=== PATIENT | male | born 1950 | race Caucasian/White ===

== ENCOUNTER 2021-09-29 09:10 | Observation (INO) | payer BC, OTHER ==
--- OUTSIDE RECORDS SUMMARY | 2021-09-29 09:13 | XMS REPORT | Continuity of Care Document ---
:1950 Author Organization [facility] t Address [address] [place] [address] Care Team Providers Name Role Phone TRINITY MYERS Attending Clinician Unavailable Problems This patient has no known problems. Allergies, Adverse Reactions, Alerts This patient has no known allergies or adverse reactions. Medications Ordered Filled Start Stop Current Ordering Indication Dosage Frequency Signature Comments Components Source Medication Medication Date Date Medication? Clinician (SIG) Name Name Clopidogrel Clopidogrel Yes Graham not [facility] Bisulfate Bisulfate [facility] MetFORMIN MetFORMIN Yes Graham not [facility] HCl ER HCl ER [facility] Tamsulosin Tamsulosin Yes Graham not [facility] HCl HCl [facility] [place] Yes Graham not [facility] Thyroid Thyroid [facility] Testosteron Testosteron Yes Graham not [facility] Cypionate e Cypionate [facility] Thyroid Thyroid Yes Graham not [facility] defined [facility] Carvedilol Carvedilol Yes Graham not [facility] Atorvastati Atorvastati Yes Graham not [facility] n Calcium n Calcium [facility] Losartan Losartan Yes [facility] not [facility] Potassium Potassium [place] [facility] NURSES' REGISTRY DIRECTOR Thyroid NURSES' REGISTRY DIRECTOR Thyroid Yes Graham not [facility] Metoprolol Metoprolol Yes Graham not [facility] Tartrate Tartrate [facility] Amlodipine Amlodipine Yes Graham not [facility] Besylate Besylate [facility] Procedures This patient has no known procedures. Encounters Start End Encounter Admission Attending Care Care Encounter Source Date/Time Date/Time Type Type Clinicians Facility Department ID 2021-09-08 Outpatient IRVIN MYERS [facility] [id number] [facility] [address] 12:08:01 [id number] [facility] 2021-09-08 Outpatient IRVIN MYERS [facility] [id number] [facility] [address] 12[facility]00:15 [id number] [facility] 2021-09-08 Outpatient IRVIN MYERS [facility] [id number] [facility] [address] 11:59:34 [id number] [facility] 2021-09-08 Outpatient IRVIN MYERS [facility] [id number] [facility] [address] 11:54:44 [id number] [facility] 2020-07-13 2020-07-13 Outpatient [facility] [id number] 2020-07-06 2020-07-06 Out[facility] [id number] [facility] 2020-06-29 2020-06-29 Out[facility] [id number] [facility] 2020-06-25 2020-06-[address] [id number] 2020-06-11 2020-06-[address] [facility] [id number] [facility] 2019-05-15 2019-05-15 [facility] [id number] [facility] 08:30[facility]00 08:30[facility]00 [facility] Results This patient has no known results.
--- NOTE | 2021-09-29 09:29 | RAD REPORT ---
EXAM DESCRIPTION: CT - Ct Stroke Brain Wo Cont - 09/29/2021 9:22 am CLINICAL HISTORY: Right-sided weakness COMPARISON: none TECHNIQUE: Computed axial tomography of the head was obtained. All CT scans are performed using dose optimization technique as appropriate and may include automated exposure control or mA/KV adjustment according to patient size. FINDINGS: An intracranial bleed is not seen . The ventricles are normal in caliber. No extra-axial fluid collection is noted. Equivocal small low-density area within the left thalamus and left cerebellum. Small low-density area left frontal lobe probably chronic Fluid within the sinuses/ mastoids is not seen. IMPRESSION: Equivocal small low-density areas within the left thalamus and left cerebellum. 1 or bot h or equivocal for small acute infarct. MRI may be helpful. Iggy recio of the emergency room was notified at 9:24 a.m. September 29, 2021
[2021-09-29 09:33] LABS: Absolute Lymphocytes (CBC) 1.1 K/uL (0.7-4.9); Hematocrit 39.8 % (39.6-49.0); Lymphocytes % 19.1 % (15.3-44.8); MPV 7.9 fL (7.6-11.3); RBC Red Blood Cell Count 4.61 M/uL (4.33-5.43)
[2021-09-29 09:42] LABS: Potassium 4.4 mmol/L (3.5-5.1)
[2021-09-29 10:06] LABS: Protime INR 1.02
--- NOTE | 2021-09-29 10:19 | RAD REPORT ---
EXAM DESCRIPTION: Fabiana Single View2 10:00 am CLINICAL HISTORY: Chest pain COMPARISON: 2017 FINDINGS: The lungs appear clear of acute infiltrate. The heart is mildly enlarged. Postsurgical changes involve the chest. Aorta is tortuous/ectatic IMPRESSION: No acute abnormalities displayed
--- NOTE | 2021-09-29 10:55 | RAD REPORT ---
EXAM DESCRIPTION: Aayushck Angio09/29/2021 10:12 am CLINICAL HISTORY: cva COMPARISON: None TECHNIQUE: 50 cc Isovue 370 was administered intravenously. 3D MIP reconstruction performed All CT scans are performed using dose optimization technique as appropriate and may include automated exposure control or mA/KV adjustment according to patient size. FINDINGS: Mild plaque within the left common, left external and proximal and mid left internal carot id artery. Moderate calcified plaque distal left internal carotid artery. The distal left internal ca rotid artery very tortuous. Mild calcified plaque left vertebral artery. Suboptimal opacification right vertebral artery. Mild calcified plaque left common, left proximal and mid left internal carotid and left external moran tid arteries. Distal right internal carotid artery tortuous. Mild to moderate calcified plaque distal ly. IMPRESSION: Moderate calcified plaque distal left internal carotid artery Suboptimal opacification right vertebral artery. It is difficult to determine if there is significant pathology or this is secondary to technical factors. If clinically indicated a follow-up MRA neck co uld be obtained September 30, 2021 NASCET criteria used. Mild 0-49% stenosis Moderate 50-69% stenosis Severe 70-99% stenosis
--- NOTE | 2021-09-29 10:59 | RAD REPORT ---
EXAM DESCRIPTION: CTHead angio09/29/2021 10:12 am CLINICAL HISTORY: cva COMPARISON: None TECHNIQUE: CT angiogram of the head was obtained. 3D MIPS reconstruction performed. All CT scans are performed using dose optimization technique as appropriate and may include automated exposure control or mA/KV adjustment according to patient size. FINDINGS: The basilar, left anterior cerebral, middle cerebral and posterior cerebral arteries are n ormal caliber. Hypoplastic A1 segment right anterior cerebral artery. An aneurysm is not seen. A significant stenosis is not noted. IMPRESSION: No significant abnormality is displayed Refer to the CTA neck for distal internal carotid artery findings
--- NOTE | 2021-09-29 12:05 | EDPHYS ---
Physician Documentation [facility] Name: Jeremy Lopez Age: 71 yrs Sex: Male : 1950 Arrival Date: 09/29/2021 Time: 09:13 Bed 4 Private MD: ED Physician Robi Hu HPI: 09/29 09:16 This 71 yrs old Male presents to ER via EMS with complaints of Slurred speech, kdr disorientation and weakness. 09:16 The patient presents to the emergency department with weakness of the left upper kdr extremity, left lower extremity, entire body, generalized weakness, a speech or higher order brain function problem, aphasia, that is mild. Onset: The symptoms/episode began/occurred suddenly, at 08:30. Context: occurred at work, occurred while the patient was at rest. Associated signs and symptoms: Pertinent positives: altered mental status, weakness. Severity of symptoms: At their worst the symptoms were mild moderate just prior to arrival, in the emergency department the symptoms are unchanged. Patient's baseline: Neuro: alert and fully oriented, Motor: no deficits, Ambulation: walks without assistance, Speech: slow, slurred. Current symptoms: confusion. It is unknown whether or not the patient has had similar symptoms in the past. It is unknown whether or not the patient has recently seen a physician. Historical: - Allergies: 09:16 No Known Allergies; jd3 - Home Meds: 09:36 amlodipine oral [Active]; Plavix 75 mg Oral tab 1 tab once daily [Active]; atorvastatin jd3 oral [Active]; carvedilol 3.125 mg oral tab [Active]; doxazosin oral [Active]; losartan oral [Active]; Metformin Oral [Active]; tamsulosin oral [Active]; - PMHx: 09:16 Cerebrovascular accident; jd3 - PSHx: 09:18 heart surgery; jd3 - Immunization history:: Adult Immunizations up to date. - Social history:: Smoking status: unknown. ROS: 09:16 Constitutional: Negative for fever, chills, and weight loss, Eyes: Negative for injury, kdr pain, redness, and discharge, ENT: Negative for injury, pain, and discharge, Neck: Negative for injury, pain, and swelling, Cardiovascular: Negative for chest pain, palpitations, and edema, Respiratory: Negative for shortness of breath, cough, wheezing, and pleuritic chest pain, Abdomen/GI: Negative for abdominal pain, nausea, vomiting, diarrhea, and constipation, Back: Negative for injury and pain, : Negative for injury, bleeding, discharge, and swelling, MS/Extremity: Negative for injury and deformity, Skin: Negative for injury, rash, and discoloration, Psych: Negative for depression, anxiety, suicide ideation, homicidal ideation, and hallucinations, Allergy/Immunology: Negative for hives, rash, and allergies, Endocrine: Negative for neck swelling, polydipsia, polyuria, polyphagia, and marked weight changes, Hematologic/Lymphatic: Negative for swollen nodes, abnormal bleeding, and unusual bruising. 09:16 Neuro: Positive for altered mental status, speech changes, visual changes, weakness, Confusion, Negative for headache, loss of consciousness, seizure activity, syncope, near syncope, tremor. Exam: 09:47 Constitutional: This is a well developed, well nourished patient who is awake, alert, kdr and in no acute distress. Head/Face: Normocephalic, atraumatic. 10:22 ECG was reviewed by the Attending Physician. kdr Vital Signs: 09:15 BP 134 / 78; Pulse 67; Resp 19 S; Temp 97.2; Pulse Ox 97% on R/A; jd3 09:30 BP 129 / 78; Pulse 66; Resp 22; Pulse Ox 96% on R/A; ww 10:30 BP 121 / 71; Pulse 62; Resp 20; Pulse Ox 97% on R/A; ww 11:00 BP 108 / 69; Pulse 67; Resp 20; Pulse Ox 95% on R/A; ww 11:30 BP 128 / 66; Pulse 57; Resp 19; Pulse Ox 97% ; ww 13:16 BP 104 / 82; Pulse 67; Resp 21; Pulse Ox 97% on R/A; ww 14:45 BP 129 / 69; Pulse 71; Resp 20 S; Pulse Ox 95% on R/A; jd3 14:56 BP 129 / 69; Pulse 63; Resp 18; Temp 97.4; Pulse Ox 96% ; ke1 NIH Stroke Scale Scores: 09:05 NIHSS Score: 8 ke1 09:05 NIHSS Score: 8 ke1 09:16 NIHSS Score: 6 kdr 09:20 NIHSS Score: 7 ke1 Nicci Coma Score: 09:30 Eye Response: spontaneous(4). Verbal Response: oriented(5). Motor Response: obeys ww commands(6). Total: 15. MDM: 09:45 Data reviewed: vital signs, nurses notes, lab test result(s), radiologic studies. kdr Counseling: I had a detailed discussion with the patient and/or guardian regarding: the historical points, exam findings, and any diagnostic results supporting the discharge/admit diagnosis, lab results, radiology results. ED course: Dr. Stern. He indicated that since the stroke was evident on the initial CT, inferring that the stroke was probably in the neighborhood of 4-1/2 hours out at this point, and given his current use of Plavix, that the patient was at high risk for conversion to hemorrhagic stroke. Therefore the patient is not a candidate for TPA at this time. 12:04 [facility] medically screened. [facility] 09/29 09:15 Order name: Basic Metabolic Panel; Complete Time: 10:47 [facility] 09/29 09:15 Order name: CBC with Diff; Complete Time: 09:42 kdr 09/29 09:15 Order name: Protime (+inr); Complete Time: 10:47 [facility] 09/29 09:15 Order name: Ptt, Activated; Complete Time: 10:47 [facility] 09/29 09:15 Order name: CT Stroke Brain w/o Contrast; Complete Time: 09:42 [facility] 09/29 11:11 Order name: SARS-COV-2 RT PCR (Document "Date of Onset" if Symptomatic) 09/29 09:15 Order name: Stroke CXR 1 View; Complete Time: 10:47 [facility] 09/29 09:15 Order name: EKG; Complete Time: 09:16 kdr 09/29 09:32 Order name: Head Angio CT; Complete Time: 11:15 bd 09/29 10:06 Order name: Neck Angio; Complete Time: 10:58 [facility] 09/29 12:14 Order name: CONS Physician Consult [facility] 09/29 12:17 Order name: Echo with Doppler [facility] 09/29 12:17 Order name: Stroke Protocol [facility] 09/29 12:18 Order name: Chest Pa And Lat (2 Views) [facility] 09/29 09:15 Order name: Accucheck; Complete Time: 09:54 [facility] 09/29 09:15 Order name: Cardiac monitoring; Complete Time: 09:54 [facility] 09/29 09:15 Order name: EKG - Nurse/Tech; Complete Time: : kdr 09/29 09:15 Order name: IV Saline Lock; Complete Time: [facility] 09/29 09:15 Order name: Labs collected and sent; Complete Time: : kdr 09/29 09:15 Order name: NPO; Complete Time: : [facility] 09/29 09:15 Order name: O2 Per Protocol; Complete Time: : [facility] 09/29 09:15 Order name: O2 Sat Monitoring; Complete Time: : kdr 09/29 09:15 Order name: Stroke Swallow Screen; Complete Time: 10:00 [facility] 09/29 12:17 Order name: Physical Therapy Consult [facility] 09/29 12:17 Order name: NPO [facility] 09/29 12:17 Order name: EKG Electrocardiogram [facility] 09/29 12:18 Order name: Speech Therapy Consult [facility] EC:22 Rate is 64 beats/min. Rhythm is regular, Sinus Rhythm with No ectopy, Right bundle kdr branch block. QRS [place] is Normal. [place] interval is normal. QRS interval is normal. QT interval is normal. Clinical impression: NSR w/ Non-specific ST/T Changes. Administered Medications: No medications were administered Point of Care Testing: Blood Glucose: 09:10 Blood Glucose: 128 mg/dL; ke1 Ranges: Critical Glucose Levels:Adult <50 mg/dl or >400 mg/dl <40 mg/dl or >180 mg/dl Disposition Summary: 09/29/21 12:04 Hospitalization Ordered Hospitalization Status: Inpatient Admission kdr Provider: Demario Gonzalez Location: Telemetry/MedSurg (Inpatient) kdr Condition: Fair kdr Problem: new kdr Symptoms: have improved kdr Bed/Room Type: Standard kdr Room Assignment: 213(09/29/21 14:18) bd Diagnosis - Cerebrovascular accident kdr - Slurred speech kdr - Confusional arousals kdr Forms: - Medication Reconciliation Form kdr - SBAR form kdr NIH Stroke Scale - NIH Stroke Score Date: 09/29/2021 Time: 09:05 Total Score = 8 1a. Level of Consciousness (LOC) - 1(Not Alert) 1b. Level of Consciousness (LOC) (Month \\T\\ Age) - 0(Both) 1c. LOC Commands (Open \\T\\ Closes Eyes/[employer] Consultant) - 0(Both) 2. Best Gaze (Lateral Gaze Paresis) - 0(Normal) 3. Visual Field Loss - 1(Partial hemianopia) 4. Facial Palsy - 0(Normal) 5a. Left Arm: Motor (10-second hold) - 0(No drift) 5b. Right Arm: Motor (10-second hold) - 0(No drift) 6a. Left Leg: Motor (5-second hold - always test supine) - 2(Drift, some effort against gravity) 6b. Right Leg: Motor (5-second hold - always test supine) - 0(No drift) 7. Limb Ataxia (finger/nose \\T\\ heel/patel - test with eyes open) - 2(Present in two limbs) 8. Sensory Loss (pinprick arms/legs/face) - 0(Normal) 9. Best Language: Aphasia (description/naming/reading) - 1(Mild to moderate aphasia) 10. Dysarthria (speech clarity - read or repeat words) - 1(Mild to Moderate) 11. Extinction and Inattention (visual/tactile/auditory/spatial/personal) - 0(No abnormality) Initials: ke1 NIH Stroke Scale - NIH Stroke Score Date: 09/29/2021 Time: 09:05 Total Score = 8 1a. Level of Consciousness (LOC) - 0(Alert) 1b. Level of Consciousness (LOC) (Month \\T\\ Age) - 1(One) 1c. LOC Commands (Open \\T\\ Closes Eyes/[employer] Consultant) - 0(Both) 2. Best Gaze (Lateral Gaze Paresis) - 0(Normal) 3. Visual Field Loss - 1(Partial hemianopia) 4. Facial Palsy - 0(Normal) 5a. Left Arm: Motor (10-second hold) - 0(No drift) 5b. Right Arm: Motor (10-second hold) - 0(No drift) 6a. Left Leg: Motor (5-second hold - always test supine) - 2(Drift, some effort against gravity) 6b. Right Leg: Motor (5-second hold - always test supine) - 0(No drift) 7. Limb Ataxia (finger/nose \\T\\ heel/patel - test with eyes open) - 2(Present in two limbs) 8. Sensory Loss (pinprick arms/legs/face) - 0(Normal) 9. Best Language: Aphasia (description/naming/reading) - 1(Mild to moderate aphasia) 10. Dysarthria (speech clarity - read or repeat words) - 1(Mild to Moderate) 11. Extinction and Inattention (visual/tactile/auditory/spatial/personal) - 0(No abnormality) Initials: ke1 NIH Stroke Scale - NIH Stroke Score Date: 09/29/2021 Time: 09:16 Total Score = 6 1a. Level of Consciousness (LOC) - 0(Alert) 1b. Level of Consciousness (LOC) (Month \\T\\ Age) - 0(Both) 1c. LOC Commands (Open \\T\\ Closes Eyes/[employer] Consultant) - 0(Both) 2. Best Gaze (Lateral Gaze Paresis) - 0(Normal) 3. Visual Field Loss - 1(Partial hemianopia) 4. Facial Palsy - 0(Normal) 5a. Left Arm: Motor (10-second hold) - 0(No drift) 5b. Right Arm: Motor (10-second hold) - 0(No drift) 6a. Left Leg: Motor (5-second hold - always test supine) - 0(No drift) 6b. Right Leg: Motor (5-second hold - always test supine) - 0(No drift) 7. Limb Ataxia (finger/nose \\T\\ heel/patel - test with eyes open) - 2(Present in two limbs) 8. Sensory Loss (pinprick arms/legs/face) - 0(Normal) 9. Best Language: Aphasia (description/naming/reading) - 1(Mild to moderate aphasia) 10. Dysarthria (speech clarity - read or repeat words) - 2(Severe) 11. Extinction and Inattention (visual/tactile/auditory/spatial/personal) - 0(No abnormality) Initials: [facility] NIH Stroke Scale - NIH Stroke Score Date: 09/29/2021 Time: 09:20 Total Score = 7 1a. Level of Consciousness (LOC) - 1(Not Alert) 1b. Level of Consciousness (LOC) (Month \\T\\ Age) - 0(Both) 1c. LOC Commands (Open \\T\\ Closes Eyes/[employer] Consultant) - 0(Both) 2. Best Gaze (Lateral Gaze Paresis) - 0(Normal) 3. Visual Field Loss - 1(Partial hemianopia) 4. Facial Palsy - 0(Normal) 5a. Left Arm: Motor (10-second hold) - 0(No drift) 5b. Right Arm: Motor (10-second hold) - 0(No drift) 6a. Left Leg: Motor (5-second hold - always test supine) - 1(Drift) 6b. Right Leg: Motor (5-second hold - always test supine) - 0(No drift) 7. Limb Ataxia (finger/nose \\T\\ heel/patel - test with eyes open) - 2(Present in two limbs) 8. Sensory Loss (pinprick arms/legs/face) - 0(Normal) 9. Best Language: Aphasia (description/naming/reading) - 1(Mild to moderate aphasia) 10. Dysarthria (speech clarity - read or repeat words) - 1(Mild to Moderate) 11. Extinction and Inattention (visual/tactile/auditory/spatial/personal) - 0(No abnormality) Initials: ke1 Signatures: Dispatcher [employer] EDMS Dona Quezada Kevin, MD MD kdr Davies, Jonathon, RN RN jd3 Corrections: (The following items were deleted from the chart) 09:39 09:36 Home Meds: atorvastatin oral; jd3 jd3 14:18 12:04 [facility] bd
--- NOTE | 2021-09-29 12:05 | ER ---
Nurse's Notes [facility] Name: Jeremy Lopez Age: 71 yrs Sex: Male : 1950 Arrival Date: 09/29/2021 Time: 09:13 Bed 4 Private MD: Diagnosis: Cerebrovascular accident;Slurred speech;Confusional arousals Presentation: 09/29 09:13 Chief complaint: EMS states: "at 0830 the pt's boss noticed he was not acting normal jd3 and was having some slurred speech and drowsiness. the pt's family reported that he has had a stroke in the past. 20 G IV started to left AC. BGL of 128. has normal strengths, but reports weakness to left leg.". Coronavirus screen: At this time, the client does not indicate any symptoms associated with coronavirus-19. Ebola Screen: No symptoms or risks identified at this time. Initial Sepsis Screen: Does the patient meet any 2 criteria? No. Patient's initial sepsis screen is negative. Does the patient have a suspected source of infection? No. Patient's initial sepsis screen is negative. Risk Assessment: Do you want to hurt yourself or someone else? Patient reports no desire to harm self or others. Onset of symptoms was September 29, 2021. 09:13 Method Of Arrival: EMS: [facility] jd3 09:13 Acuity: NITIN 2 jd3 09:15 An acute neurological deficit is present. The charge nurse has been notified. The jd3 patient has been moved to a treatment area. The patients blood glucose was checked before arriving to the hospital and was found to be normal. Triage Assessment: 14:57 General: Appears in no apparent distress. Behavior is calm, cooperative. ke1 15:01 The onset of the patients symptoms was September 29, 2021 at 08:30. ke1 15:01 Neuro: Reports slurred speech. ke1 Stroke Activation: Symptom onset < 3 hours Physician: Stroke Attending; Name: ; Notified At: ; Arrived At: Physician: Chief Stroke Resident; Name: ; Notified At: ; Arrived At: Physician: Stroke Resident; Name: ; Notified At: ; Arrived At: Physician: ED Attending; Name: Mayte MAHMOOD; Notified At: 09:13; Arrived At: 09:13 Physician: ED Resident; Name: ; Notified At: ; Arrived At: Historical: - Allergies: 09:16 No Known Allergies; jd3 - Home Meds: 09:36 amlodipine oral [Active]; Plavix 75 mg Oral tab 1 tab once daily [Active]; atorvastatin jd3 oral [Active]; carvedilol 3.125 mg oral tab [Active]; doxazosin oral [Active]; losartan oral [Active]; Metformin Oral [Active]; tamsulosin oral [Active]; - PMHx: 09:16 Cerebrovascular accident; jd3 - PSHx: 09:18 heart surgery; jd3 - Immunization history:: Adult Immunizations up to date. - Social history:: Smoking status: unknown. Screenin:45 Abuse screen: Denies threats or abuse. Nutritional screening: No deficits noted. ke1 Tuberculosis screening: No symptoms or risk factors identified. Fall Risk No fall in past 12 months (0 pts). IV access (20 points). Ambulatory Aid- None/Bed Rest/Nurse Assist (0 pts). Gait- Weak (10 pts.). Mental Status- Oriented to own ability (0 pts). Total Dhillon Fall Scale indicates Low Risk Score (25-44 pts). Fall prevention measures have been instituted. Side Rails Up X 2 Frequent Obs/Assesments occuring As available Patient and Family Educated on Fall Prevention Program and strategies. Assessment: 09:05 VAN Scoring:. Pain: Denies pain. ke1 09:15 T-PA (Activase) Screening: Contraindications: Other: not needed per Provider. ke1 09:24 Reassessment: results given to Iggy Page by Dr. Reynolds. iw 09:44 Patient has been NPO before screening. The patient is alert, and able to follow ke1 commands. The patient exhibits slurred or garbled speech. Provider notified of the indication for Speech Therapy consult. The patient is exhibiting difficulty speaking. The patient does not exhibit difficulty understanding words. The patient is able to swallow own secretions with no drooling or need for suction. Patient tolerated one teaspoon of water. No drooling, immediate coughing, gurgling, or clearing of the throat was noted. The patient tolerated 90mL of water. No drooling, immediate coughing, gurgling, or clearing of the throat was noted. The patient passed the bedside swallow screening. Oral medications may be given as ordered. Contact Physician for further diet orders. Provider notified of bedside swallow screening results: Robi Hu MD. 10:36 Neuro: Level of Consciousness is alert, obeys commands, Oriented to person, place, ww time, situation, Ticket Dispenser Changer are equal bilaterally Moves all extremities. Speech is slurred, Facial symmetry appears normal, Intact. 12:30 Reassessment: Patient appears in no apparent distress at this time. No changes from ww previously documented assessment. Patient and/or family updated on plan of care and expected duration. Pain level reassessed. family at bedside. 13:16 Reassessment: Patient appears in no apparent distress at this time. No changes from ww previously documented assessment. Patient and/or family updated on plan of care and expected duration. Pain level reassessed. 14:44 Reassessment: No changes from previously documented assessment. Patient and/or family jd3 updated on plan of care and expected duration. Pain level reassessed. Patient is alert, oriented x 3, equal unlabored respirations, skin warm/dry/pink. Vital Signs: 09:15 BP 134 / 78; Pulse 67; Resp 19 S; Temp 97.2; Pulse Ox 97% on R/A; jd3 09:30 BP 129 / 78; Pulse 66; Resp 22; Pulse Ox 96% on R/A; ww 10:30 BP 121 / 71; Pulse 62; Resp 20; Pulse Ox 97% on R/A; ww 11:00 BP 108 / 69; Pulse 67; Resp 20; Pulse Ox 95% on R/A; ww 11:30 BP 128 / 66; Pulse 57; Resp 19; Pulse Ox 97% ; ww 13:16 BP 104 / 82; Pulse 67; Resp 21; Pulse Ox 97% on R/A; ww 14:45 BP 129 / 69; Pulse 71; Resp 20 S; Pulse Ox 95% on R/A; jd3 14:56 BP 129 / 69; Pulse 63; Resp 18; Temp 97.4; Pulse Ox 96% ; ke1 Alton Coma Score: 09:30 Eye Response: spontaneous(4). Verbal Response: oriented(5). Motor Response: obeys ww commands(6). Total: 15. NIH Stroke Scale Scores: 09:05 NIHSS Score: 8 ke1 09:05 NIHSS Score: 8 ke1 09:16 NIHSS Score: 6 kdr 09:20 NIHSS Score: 7 ke1 ED Course: 09:13 Patient arrived in ED. jd3 09:14 Robi Hu MD is Attending Physician. kdr 09:15 Triage completed. jd3 09:18 Arm band placed on. jd3 09:20 Patient has correct armband on for positive identification. Bed in low position. Call ww light in reach. Side rails up X2. helper marble finisher on. Pulse ox on. NIBP on. 09:20 EKG done. Inserted saline lock: 20 gauge in right forearm, using aseptic technique. ww Blood collected. 09:22 CT Stroke Brain w/o Contrast In Process Unspecified. EDMS 09:54 Myrtle Fontanez, RN is Primary Nurse. ww 10:00 Stroke CXR 1 View In Process Unspecified. EDMS 10:[address] In Process Unspecified. EDMS 10:12 Neck Angio In Process Unspecified. EDMS 12:03 Demario Gonzalez MD is Hospitalizing Provider. kdr 14:57 No provider procedures requiring assistance completed. ke1 15:01 Patient admitted, IV remains in place. ke1 Administered Medications: No medications were administered Point of Care Testing: Blood Glucose: 09:10 Blood Glucose: 128 mg/dL; ke1 Ranges: Output: 12:00 Urine: 575ml (Voided); Total: 575ml. Outcome: 12:04 Decision to Hospitalize by Provider. kdr 15:00 Admitted to Med/surg accompanied by nurse, via wheelchair, room 213. ke1 15:00 Condition: improved 15:00 Instructed on the need for admit. 15:16 Patient left the ED. jd3 NIH Stroke Scale - NIH Stroke Score Date: 09/29/2021 Time: 09:05 Total Score = 8 1a. Level of Consciousness (LOC) - 1(Not Alert) 1b. Level of Consciousness (LOC) (Month \\T\\ Age) - 0(Both) 1c. LOC Commands (Open \\T\\ Closes Eyes/Turpentine Distiller) - 0(Both) 2. Best Gaze (Lateral Gaze Paresis) - 0(Normal) 3. Visual Field Loss - 1(Partial hemianopia) 4. Facial Palsy - 0(Normal) 5a. Left Arm: Motor (10-second hold) - 0(No drift) 5b. Right Arm: Motor (10-second hold) - 0(No drift) 6a. Left Leg: Motor (5-second hold - always test supine) - 2(Drift, some effort against gravity) 6b. Right Leg: Motor (5-second hold - always test supine) - 0(No drift) 7. Limb Ataxia (finger/nose \\T\\ heel/patel - test with eyes open) - 2(Present in two limbs) 8. Sensory Loss (pinprick arms/legs/face) - 0(Normal) 9. Best Language: Aphasia (description/naming/reading) - 1(Mild to moderate aphasia) 10. Dysarthria (speech clarity - read or repeat words) - 1(Mild to Moderate) 11. Extinction and Inattention (visual/tactile/auditory/spatial/personal) - 0(No abnormality) Initials: ke1 NIH Stroke Scale - NIH Stroke Score Date: 09/29/2021 Time: 09:05 Total Score = 8 1a. Level of Consciousness (LOC) - 0(Alert) 1b. Level of Consciousness (LOC) (Month \\T\\ Age) - 1(One) 1c. LOC Commands (Open \\T\\ Closes Eyes/Turpentine Distiller) - 0(Both) 2. Best Gaze (Lateral Gaze Paresis) - 0(Normal) 3. Visual Field Loss - 1(Partial hemianopia) 4. Facial Palsy - 0(Normal) 5a. Left Arm: Motor (10-second hold) - 0(No drift) 5b. Right Arm: Motor (10-second hold) - 0(No drift) 6a. Left Leg: Motor (5-second hold - always test supine) - 2(Drift, some effort against gravity) 6b. Right Leg: Motor (5-second hold - always test supine) - 0(No drift) 7. Limb Ataxia (finger/nose \\T\\ heel/patel - test with eyes open) - 2(Present in two limbs) 8. Sensory Loss (pinprick arms/legs/face) - 0(Normal) 9. Best Language: Aphasia (description/naming/reading) - 1(Mild to moderate aphasia) 10. Dysarthria (speech clarity - read or repeat words) - 1(Mild to Moderate) 11. Extinction and Inattention (visual/tactile/auditory/spatial/personal) - 0(No abnormality) Initials: ke1 NIH Stroke Scale - NIH Stroke Score Date: 09/29/2021 Time: 09:16 Total Score = 6 1a. Level of Consciousness (LOC) - 0(Alert) 1b. Level of Consciousness (LOC) (Month \\T\\ Age) - 0(Both) 1c. LOC Commands (Open \\T\\ Closes Eyes/Turpentine Distiller) - 0(Both) 2. Best Gaze (Lateral Gaze Paresis) - 0(Normal) 3. Visual Field Loss - 1(Partial hemianopia) 4. Facial Palsy - 0(Normal) 5a. Left Arm: Motor (10-second hold) - 0(No drift) 5b. Right Arm: Motor (10-second hold) - 0(No drift) 6a. Left Leg: Motor (5-second hold - always test supine) - 0(No drift) 6b. Right Leg: Motor (5-second hold - always test supine) - 0(No drift) 7. Limb Ataxia (finger/nose \\T\\ heel/patel - test with eyes open) - 2(Present in two limbs) 8. Sensory Loss (pinprick arms/legs/face) - 0(Normal) 9. Best Language: Aphasia (description/naming/reading) - 1(Mild to moderate aphasia) 10. Dysarthria (speech clarity - read or repeat words) - 2(Severe) 11. Extinction and Inattention (visual/tactile/auditory/spatial/personal) - 0(No abnormality) Initials: [facility] NIH Stroke Scale - NIH Stroke Score Date: 09/29/2021 Time: 09:20 Total Score = 7 1a. Level of Consciousness (LOC) - 1(Not Alert) 1b. Level of Consciousness (LOC) (Month \\T\\ Age) - 0(Both) 1c. LOC Commands (Open \\T\\ Closes Eyes/Turpentine Distiller) - 0(Both) 2. Best Gaze (Lateral Gaze Paresis) - 0(Normal) 3. Visual Field Loss - 1(Partial hemianopia) 4. Facial Palsy - 0(Normal) 5a. Left Arm: Motor (10-second hold) - 0(No drift) 5b. Right Arm: Motor (10-second hold) - 0(No drift) 6a. Left Leg: Motor (5-second hold - always test supine) - 1(Drift) 6b. Right Leg: Motor (5-second hold - always test supine) - 0(No drift) 7. Limb Ataxia (finger/nose \\T\\ heel/patel - test with eyes open) - 2(Present in two limbs) 8. Sensory Loss (pinprick arms/legs/face) - 0(Normal) 9. Best Language: Aphasia (description/naming/reading) - 1(Mild to moderate aphasia) 10. Dysarthria (speech clarity - read or repeat words) - 1(Mild to Moderate) 11. Extinction and Inattention (visual/tactile/auditory/spatial/personal) - 0(No abnormality) Initials: ke1 Signatures: Dispatcher [employer] EDMS Robi Hu MD MD kdr Apple Dooley RN RN iw Davies, Jonathon, RN RN jd3 Wood, Whitney, RN RN ww Ebrottie, Kouassi, RN RN ke1 Corrections: (The following items were deleted from the chart) 09:28 09:13 Chief complaint: EMS states: "at 0830 the pt's boss noticed he was not jd3 acting normal and was having some slurred speech and drowsiness. the pt's family reported that he has had a stroke in the past." jd3 09:30 09:15 BP 134 / 78; Pulse 67bpm; Resp 19bpm; Spontaneous; Pulse Ox 97% RA; jd3 jd3 09:39 09:36 Home Meds: atorvastatin oral; j jd3 11:18 09:21 NIHSS Score: 6 ke1 ke1 14:59 14:57 General: Appears ke1 ke1 15:00 14:58 General: Behavior is ke1 ke1 15:04 15:02 T-PA (Activase) Screening: Contraindications: Other: not needed per ke1 Provider ke1
[2021-09-29] MEDS ORDERED: ONDANSETRON 4 MG/2 ML VIAL IV PRN (12:14)
--- NOTE | 2021-09-29 12:18 | P.HP ---
Certification for Inpatient Patient admitted to: Observation With expected LOS: <2 Midnights Practitioner: I am a practitioner with admitting privileges, knowledge of patient current condition, hospital course, and medical plan of care. Services: Services provided to patient in accordance with Admission requirements found in Title 42 Section 412.3 of the Code of Federal Regulations Patient History Date of Service: 09/29/21 Reason for admission: Slurred speech, stroke History of Present Illness: 71yo M , PMH: CAD s/p CABG, prior CVA, HTN Presents to the ED due to weakness and slurred speech. Unable to get accurate history from patient at this time. Family only able to provide partial history. They state patient arrived to work when he felt weak and slurred speech this morning. Denies any recent change in medications, no recent illness, no nausea/vomiting, no focal weakness in any extremities, denies difficulty swallowing. Family also reports he seems to intermittently have some slurred speech at times. In the ED, blood work rather unremarkable, CT head noted equivocal findings for possible acute stroke. Neurology was consulted in the ED, recommended the patient come to the hospital, obtain MRI/MRA for further evaluation. With findings on CT, felt to be out of the window for TPA. Allergies No Known Allergies Allergy (Verified 03/21/17 07:15) Home Medications: Atorvastatin Calcium [Lipitor*] 10 mg PO BEDTIME 03/17/17 Losartan Potassium [Cozaar*] 100 mg PO [id number] 03/17/17 Metformin HCl [Metformin ER Osmotic] 2,000 mg PO DAILY 03/17/17 Tamsulosin [Flomax*] 0.8 mg PO BEDTIME 03/17/17 Thyroid,Pork [Precision Farming Specialist Thyroid] 180 mg PO DAILY 03/17/17 Amlodipine Besylate 5 mg PO DAILY 09/29/21 Aspirin [Aspirin EC 81 MG] 81 mg PO DAILY 09/29/21 Carvedilol [Coreg] 75 mg PO DAILY 09/29/21 Doxazosin [Cardura*] 1 mg PO BEDTIME 09/29/21 - Past Medical/Surgical History Diabetic: Yes -: HTN -: DM -: ID -: CVA -: ETOH Abuse -: Coronary artery bypass grafting x4 -: steel plate right leg 1974 -: appendectomy 1973 - Family History Mother -: Hypertension, Diabetes, Cancer - Social History Smoking Status: Current every day smoker Alcohol use: Yes CD- Drugs: No Caffeine use: Yes Place of Residence: Home Review of Systems 10-point ROS is otherwise unremarkable Physical Examination - Physical Exam General: Alert, In no apparent distress, Oriented x3 HEENT: Sclerae nonicteric Respiratory: Clear to auscultation bilaterally, Normal air movement Cardiovascular: No edema, Regular rate/rhythm Gastrointestinal: Soft and benign, Non-distended, No tenderness Musculoskeletal: No tenderness Integumentary: No significant lesion Neurological: Normal strength at 5/5 x4 extr, Other (Slurred speech; CN II-XII otherwise grossly intact) - Studies Laboratory Data (last 24 hrs) 09/29/21 09:10: PT 11.7, INR 1.02, APTT 28.2 09/29/21 09:10: WBC 5.70, Hgb 13.1 L, Hct 39.8, Plt Count 159 09/29/21 09:10: Sodium 137, Potassium 4.4, BUN 19 H, Creatinine 0.85, Glucose 116 H Assessment and Plan - Advance Directives Does patient have a Living Will: No Does patient have a Durable POA for Healthcare: Yes Physician Review Additional Text: Problem list Slurred speech, possible acute CVA Prior CVA ~30+ yrs ago Hypertension CAD, CABG Nicotine dependence Patient was slurred speech since this morning, last unknown unclear CT with equivocal findings for possible acute stroke ED physician spoke with neurology, no TPA at this time, out of the window Obtain MRI and MRA head/neck for further evaluation Speech therapy consult, n.p.o. for now Bedside swallow eval Physical therapy Aspirin, statin, Plavix, folic acid Moderate calcified plaque distal left internal carotid artery, MRA for further evaluation Neurology consulted Code: Full Dispo: Anticipate DC home tomorrow Time Spent Managing Pts Care (In Minutes): 60
[2021-09-29] MEDS ORDERED: NA CHLORIDE 0.9% 1,000 ML IV SCH (13:00)
[2021-09-29] MEDS ORDERED: NA CHLORIDE 0.9% 1,000 ML ONE (13:14)
[2021-09-29 16:12] VITALS: BMI 25.7
[2021-09-29 19:47] VITALS: O2SAT 95
[2021-09-29] MEDS ORDERED: ATORVASTATIN 40 MG TAB PO SCH (21:00)
[2021-09-30 06:15] LABS: Absolute Lymphocytes (CBC) 1.4 K/uL (0.7-4.9); Hematocrit 37.9 % (39.6-49.0); Lymphocytes % 22.4 % (15.3-44.8); MPV 8.3 fL (7.6-11.3); RBC Red Blood Cell Count 4.43 M/uL (4.33-5.43)
--- NOTE | 2021-09-30 06:19 | P.PN ---
Date of Service: 09/30/21
[2021-09-30 06:34] LABS: ALT/SGPT 36 U/L (12-78); AST/SGOT 14 U/L (15-37); Albumin 2.9 g/dL (3.4-5.0); Alkaline Phosphatase 110 U/L (45-117); BUN Blood Urea Nitrogen 12 mg/dL (7-18); Bicarbonate 26 mmol/L (21-32); Bilirubin Total 0.4 mg/dL (0.2-1.0); Glucose Level 100 mg/dL (74-106); HDL Cholesterol 32 mg/dL (40-60); LDL Cholesterol, Calculated 31 (<130); Magnesium 1.8 mg/dL (1.8-2.4); Potassium 4.3 mmol/L (3.5-5.1); Protein, Total 6.3 g/dL (6.4-8.2); Sodium Level 138 mmol/L (136-145)
--- NOTE | 2021-09-30 07:39 | RAD REPORT ---
EXAM DESCRIPTION: MRI - Brain W/Wo Cont - 09/29/2021 10:31 pm CLINICAL HISTORY: acute CVA COMPARISON: MRA Head Wo Cont dated 09/29/2021; Head angio dated 09/29/2021; Neck Angio dated 09/29/2021 TECHNIQUE: Sagittal T1-weighted images were obtained along with PD/heavily T2-weighted and T2-FLAIR images. Axial DWI and ADC mapping sequences were also obtained along with coronal heavily T2-weighted images were obtained. Contrast was administered. FINDINGS: No intracranial hemorrhage, mass or acute infarction. There is no edema or shift of midlin e structures. No extra-axial fluid collections. Signal voids are seen as a normal finding in the cristina r intracranial vessels. Mild to moderate chronic small vessel ischemic changes. Mastoid air cells and paranasal sinuses are clear. IMPRESSION: No acute intracranial abnormality. Specifically, no evidence of acute infarct or abnorma l enhancement. Mild to moderate chronic small vessel ischemic changes.
--- NOTE | 2021-09-30 08:19 | RAD REPORT ---
EXAM DESCRIPTION: MRI - MRA Head Wo Cont - 09/29/2021 10:28 pm CLINICAL HISTORY: acute CVA CVA COMPARISON: Head angio dated 09/29/2021 FINDINGS: 3D noncontrast [id number] MR angiography of the [place] was performed. No aneurysm, flow-limiting stenosis or vascular malformation is seen. Forward flow seen in codominant vertebral arteries. The visualized dural venous sinuses appear patent. Mucous retention cyst in the right sphenoid sinus IMPRESSION: No significant flow abnormality of the [place] is identified.
--- NOTE | 2021-09-30 08:30 | RAD REPORT ---
EXAM DESCRIPTION: MRI - MRA Neck W/Wo Cont - 09/29/2021 10:31 pm CLINICAL HISTORY: acute CVA COMPARISON: Neck Angio dated 09/29/2021 FINDINGS: Contrast enhance 2D [id number] MR angiography of the neck vessels was performed. Both carotid systems are widely patent. The vertebral arteries are widely patent. The vessels are ronnie ewhat tortuous bilaterally. IMPRESSION: No flow limiting stenosis is present within the neck.
[2021-09-30 08:45] VITALS: BP 134/71; TEMP 97.6
[2021-09-30] MEDS ORDERED: CLOPIDOGREL 75 MG TABLET PO SCH (09:00)
[2021-09-30] MEDS ORDERED: FOLIC ACID 1 MG TABLET PO SCH (09:00)
--- NOTE | 2021-09-30 20:48 | P.DS ---
Admission Date: 09/29/21 Discharge Date: 09/30/21 Disposition: ROUTINE DISCHARGE Discharge Condition: GOOD Reason for Admission: Slurred speech, TIA Consultations: Neurology - Dr. Stern Procedures: Problem list TIA Prior CVA ~30+ yrs ago Hypertension CAD, CABG Nicotine dependence Brief History of Present Illness: 71yo M , PMH: CAD s/p CABG, prior CVA, HTN Presents to the ED due to weakness and slurred speech. Unable to get accurate history from patient at this time. Family only able to provide partial history. They state patient arrived to work when he felt weak and slurred speech this morning. Denies any recent change in medications, no recent illness, no nausea/vomiting, no focal weakness in any extremities, denies difficulty swallowing. Family also reports he seems to intermittently have some slurred speech at times. In the ED, blood work rather unremarkable, CT head noted equivocal findings for possible acute stroke. Neurology was consulted in the ED, recommended the patient come to the hospital, obtain MRI/MRA for further evaluation. With findings on CT, felt to be out of the window for TPA. Hospital Course: Patient presented with slurred speech. Initial imaging by CT was concerning for possible stroke vs imaging artifact. MRI and MRA was obtained of head and neck and did not reveal any abnormalities. Patient's symptoms resolved and he was back to his baseline. Labs were unremarkable and vitals stable / WNL. Neurology (Dr. Stern) was consulted, recommended medical management for likely TIA. Aspirin, plavix, statin dose increased, and folic acid Follow up with Neurology in a few weeks. To consider further evaluation for seizure as outpatient. Follow up with PCP within 1 week. Vital Signs/Physical Exam: Temp Pulse Resp BP Pulse Ox 97.6 F 75 20 134/71 96 09/30/21 08:00 09/30/21 08:00 09/30/21 08:00 09/30/21 08:00 09/30/21 08:00 Physical Exam General: Alert, In no apparent distress, Oriented x3 Respiratory: Clear to auscultation bilaterally, Normal air movement Cardiovascular: No edema, Regular rate/rhythm Gastrointestinal: Soft and benign, Non-distended, No tenderness Musculoskeletal: No tenderness Integumentary: No significant lesion Neurological: Normal strength at 5/5 x4 extr, CN II-XII grossly intact) Laboratory Data at Discharge: WBC 6.10 K/uL (4.3-10.9) 09/30/21 05:48 Hgb 12.7 g/dL (13.6-17.9) L 09/30/21 05:48 Hct 37.9 % (39.6-49.0) L 09/30/21 05:48 Plt Count 159 K/uL (152-406) 09/30/21 05:48 PT 11.7 SECONDS (9.5-12.5) 09/29/21 09:10 INR 1.02 09/29/21 09:10 APTT 28.2 SECONDS (24.3-36.9) 09/29/21 09:10 Sodium 138 mmol/L (136-145) 09/30/21 05:48 Potassium 4.3 mmol/L (3.5-5.1) 09/30/21 05:48 BUN 12 mg/dL (7-18) 09/30/21 05:48 Creatinine 0.76 mg/dL (0.55-1.3) 09/30/21 05:48 Glucose 100 mg/dL (74-106) 09/30/21 05:48 Magnesium 1.8 mg/dL (1.8-2.4) 09/30/21 05:48 Total Bilirubin 0.4 mg/dL (0.2-1.0) 09/30/21 05:48 AST 14 U/L (15-37) L 09/30/21 05:48 ALT 36 U/L (12-78) 09/30/21 05:48 Alkaline Phosphatase 110 U/L (45-117) 09/30/21 05:48 Triglycerides 179 mg/dL (<150) H 09/30/21 05:48 Cholesterol 99 mg/dL (<200) 09/30/21 05:48 HDL Cholesterol 32 mg/dL (40-60) L 09/30/21 05:48 Cholesterol/HDL Ratio 3.09 09/30/21 05:48 Home Medications: Losartan Potassium [Cozaar*] 100 mg PO [id number] 03/17/17 Metformin HCl [Metformin ER Osmotic] 2,000 mg PO DAILY 03/17/17 Tamsulosin [Flomax*] 0.8 mg PO BEDTIME 03/17/17 Thyroid,Pork [Academic Department Chair Thyroid] 180 mg PO DAILY 03/17/17 Amlodipine Besylate 5 mg PO DAILY 09/29/21 Aspirin [Aspirin EC 81 MG] 81 mg PO DAILY 09/29/21 Carvedilol [Coreg] 75 mg PO DAILY 09/29/21 Doxazosin [Cardura*] 1 mg PO BEDTIME 09/29/21 Atorvastatin Calcium [Lipitor] 40 mg PO BEDTIME 30 Days #30 tab 09/30/21 Clopidogrel Bisulfate [Plavix*] 75 mg PO DAILY 30 Days #30 tablet 09/30/21 Folic Acid 1 mg PO DAILY 30 Days #30 tablet 09/30/21 New Medications: Folic Acid 1 mg PO DAILY 30 Days #30 tablet Atorvastatin Calcium [Lipitor] 40 mg PO BEDTIME 30 Days #30 tab Clopidogrel Bisulfate [Plavix*] 75 mg PO DAILY 30 Days #30 tablet Physician Discharge Instructions: Patient presented with slurred speech. Initial imaging by CT was concerning for possible stroke vs imaging artifact. MRI and MRA was obtained of head and neck and did not reveal any abnormalities. Patient's symptoms resolved and he was back to his baseline. Labs were unremarkable and vitals stable / WNL. Neurology (Dr. Stern) was consulted, recommended medical management for likely TIA. Aspirin, plavix, statin dose increased, and folic acid Follow up with Neurology in a few weeks. To consider further evaluation for seizure as outpatient. Follow up with PCP within 1 week. Diet: Regular Activity: Ad abad Followup: Daniel Palumbo MD [Primary Care Provider] - (Call to schedule appointment) Time spent managing pt's care (in minutes): 45
--- NOTE | 2021-10-01 07:53 | ECHO ---
HEIGHT: 5 ft 11 in WEIGHT: 185 lb 0 oz DATE OF STUDY: 09/29/[address]: Demario Gonzalez MD 2-DIMENSIONAL: YES M.MODE: YES DOPPLER: YES COLOR FLOW: YES TDS: NO PORTABLE: NO DEFINITY: NO BUBBLE STUDY: NO DIAGNOSIS: STROKE CARDIAC HISTORY: CATHERIZATION: NO SURGERY: YES PROSTHETIC VALVE: NO PACEMAKER: NO MEASUREMENTS (cm) DIASTOLIC (NORMALS) SYSTOLIC (NORMALS) IVSd 1.0 (0.6-1.2) LA Diam 4.6 (1.9-4.0) LVEF 55-60% LVIDd 5.5 (3.5-5.7) LVIDs 4.1 (2.0-3.5) %FS 26% LVPWd 1.0 (0.6-1.2) Ao Diam 3.0 (2.0-3.7) 2 DIMENSIONAL ASSESSMENT: RIGHT ATRIUM: NORMAL LEFT ATRIUM: ENLARGED RIGHT VENTRICLE: NORMAL LEFT VENTRICLE: NORMAL TRICUSPID VALVE: MITRAL VALVE: PULMONIC VALVE: AORTIC VALVE: NORMAL PERICARDIAL EFFUSION: NONE AORTIC ROOT: NORMAL LEFT VENTRICULAR WALL MOTION: NORMAL DOPPLER/COLOR FLOW: SEE BELOW COMMENTS: NORMAL LEFT VENTRICULAR EJECTION FRACTION 55-60%. NORMAL WALL MOTION. MILD MITRAL, ATRIAL AND TRICUSPID REGURGITATION. TECHNOLOGIST: Jordan BIGGS
== END 2021-09-30 12:30 | disposition home or self-care (01) ==
LOC: ER 09:10 → ERHOLD 12:13 → 2ND 14:56
PROVIDERS: ADMIT Hospitalist; ATTEND Hospitalist
DX: G45.9 Transient cerebral ischemic attack, unspecified (principal); I10 Essential (primary) hypertension; R29.708 NIHSS score 8; I25.10 Atherosclerotic heart disease of native coronary artery without angina pectoris; E11.9 Type 2 diabetes mellitus without complications; I25.2 Old myocardial infarction; F17.200 Nicotine dependence, unspecified, uncomplicated; F10.10 Alcohol abuse, uncomplicated; Z86.73 Personal history of transient ischemic attack (TIA), and cerebral infarction without residual deficits; Z95.1 Presence of aortocoronary bypass graft; Z79.82 Long term (current) use of aspirin; Z79.899 Other long term (current) drug therapy; Z20.822 Contact with and (suspected) exposure to COVID-19; Z82.49 Family history of ischemic heart disease and other diseases of the circulatory system; Z83.3 Family history of diabetes mellitus; Z80.9 Family history of malignant neoplasm, unspecified
CPT/HCPCS: 93005 ×2; 93306; 85025 ×2; 80048; 36415; 83735; 85610; 80061; 85730; 80053; 70496; 70498; 70450; 71045; 70553; 70544; 70549; 97110; 97116 ×3; 97161; 97530; 99285; U0003; Q9967; A9577; J7030 ×2; G0378 ×3